=== PATIENT | male | born 1945 | race Caucasian/White ===

== ENCOUNTER → 2020-06-04 | Outpatient (CLI) | payer OTHER ==
[~2020-06-04] MED LIST: BAYER CHEWABLE81 MG PO; CO-ENZYME Q-1010 MG PO; DILTIAZEM 24HR120 M1 PO; DILTIAZEM 24HR180 M1 PO; FINASTERIDE5 MG PO; FISH OIL 1,0001 EAC9 PO; FLONASE 0.05%50 MCG NARES; GARLIC1000 MG PO; MAGNESIUM CITR125 MG PO; MELATONIN5 MG SUBLING; MELOXICAM15 MG PO; MS CONTIN15 MG PO; MULTI VITAMIN1 EACH PO; NEURONTIN 300M300 M2 PO; OMEGA 3-6-9 CO400 MG PO; OSTEO BI-FLEX1 EAC2 PO; PROAIR HFA8.5 GM INH; SYSTANE ULTRA 010 ML OPHTHALMIC; VITAMIN C1000 MG PO; VITAMIN D350 MCG PO; XIIDRA1 EACH OPHTHALMIC; ZINC50 M1 PO; ZYRTEC10 M4 PO
== END ==
LOC: LAB 09:42
PROVIDERS: ATTEND Orthopaedic Surgery
DX: Z01.812 Encounter for preprocedural laboratory examination (principal); Z20.822 Contact with and (suspected) exposure to COVID-19

== ENCOUNTER 2020-06-10 10:28 | Inpatient (IN) | payer OTHER ==
[2020-06-04 09:11] LABS: HEMATOCRIT 43.7 % (42.0-52.0); HEMOGLOBIN 14.7 gm/dL (14.0-18.0); MCH 31.8 pg (26.0-34.0); MCHC 33.6 g/dL (28.0-37.0); MCV 94.6 fL (80.0-100.0); RBC 4.62 mil/uL (4.50-6.00); RDW 13.3 % (10.5-14.5); WBC 4.8 thou/uL (4.0-11.0)
[2020-06-04 09:13] LABS: URINE BILIRUBIN NEGATIVE (Negative); URINE BLOOD NEGATIVE (Negative); URINE CLARITY CLEAR; URINE COLOR YELLOW; URINE GLUCOSE-RANDOM* NEGATIVE (Negative); URINE KETONES NEGATIVE (Negative); URINE LEUKOCYTES-REFLEX NEGATIVE (Negative); URINE NITRITE-REFLEX NEGATIVE (Negative); URINE PROTEIN (DIPSTICK) NEGATIVE (Negative); URINE SPECIFIC GRAVITY 1.025 (1.005-1.035); URINE UROBILINOGEN 0.2 E.U./dl (0.2-1.0)
[2020-06-04 09:19] LABS: ALBUMIN 3.8 g/dL (3.4-5.0); CREATININE 1.2 mg/dL (0.7-1.3); POTASSIUM 4.3 mmol/L (3.5-5.1)
[2020-06-04 09:26] LABS: PROTIME 10.9 Seconds (9.3-11.4)
[~2020-06-10] VITALS: Ht 182.9 cm; Wt 105.2 kg
[2020-06-10] VITALS (7 sets, daily range): BP systolic 113–146; BP diastolic 71–98
--- NOTE | ~2020-06-10 | O ---
[facility] [place] [address] OPERATIVE REPORT Name: SANJAYDEE DEE SHAHBAZ Room #: [facility] [place] M.R.#: [id number] Admission: 06/10/20 Attend Phys: Esteban Joseph MD Discharge: Date of : 43 Report #: [id number] THIS REPORT FOR: cc: ALDO - Megan family physician/PCP ALDO - No family physician/PCP Esteban Joseph MD ~ DATE OF SERVICE: 06/10/2020 PREOPERATIVE DIAGNOSIS: Bilateral knee osteoarthritis. POSTOPERATIVE DIAGNOSIS: Bilateral knee osteoarthritis. PROCEDURE: Bilateral total knee arthroplasty using Navio robotic assistance. SURGEON: Esteban Joseph MD READINESS PARAPROFESSIONAL: Erica Phillip PA-C INDICATIONS FOR READINESS PARAPROFESSIONAL: Throughout the case, extensive retraction and manipulation of the knees were required. This was afforded to me by my medical assistant supervisor. ANESTHESIA: LMA with an adductor canal block. IMPLANTS: For the right knee is Herrera [employer]hew size 7 Journey II BCS cobalt chrome femur, a size 7 tibia, size 10 polyethylene and a size 35 patella. For the left knee is a size 7 Journey II BCS cobalt chrome femur, size 7 tibia, size 9 constrained polyethylene and a size 35 patella. TOURNIQUET TIME: 50 minutes for the right and 59 minutes for the left. ESTIMATED BLOOD LOSS: 50 mL. COMPLICATIONS: None. SPECIMENS: None. CONDITION UPON LEAVING THE OPERATING ROOM: Stable. INDICATIONS FOR PROCEDURE: The patient is a 75-year-old gentleman with bilateral knee osteoarthritis. He had failed conservative measures for this and after discussion with him, he elected for bilateral total knee arthroplasty. DESCRIPTION OF PROCEDURE: Risks, benefits, alternatives, complications were discussed in detail with the patient including but not limited to risk of [facility] [address] [place] [address] OPERATIVE REPORT Name: DEE DEE GRACE SHAHBAZ Room #: [facility] M.R.#: [id number] Admission: 06/10/20 Attend Phys: Esteban Joseph MD Discharge: Date of : 43 Report #: [id number] anesthesia, risk of damage to nerves, arteries, blood vessels, risk for infection, bleeding, continued knee pain, need for reoperation. Informed consent was obtained from the patient. Bilateral knees were appropriately marked in the preoperative holding area. Adductor canal block was placed by anesthesia. He was brought to the operating room and placed in supine position on operating room table. General anesthesia was induced without complication. Tourniquet was placed on bilateral thighs. Bilateral lower extremities were prepped and draped in normal sterile fashion. Timeout was performed properly identifying the patient and procedure as well as the instrumentation and implants. All in the operating room were in agreement. Following dictation applies to bilateral knees. Lower extremity was exsanguinated, tourniquet was inflated. Tourniquet time again was 50 minutes for the right and 59 minutes for the left. Standard midline incision was made with 10 blade through the skin. Dissection was taken down sharply to the fascia and deep flaps were developed medially and laterally. Fresh 10 blade was used to make a medial parapatellar arthrotomy and the knee was inspected. There was moderate medial compartment osteoarthritis with moderate to severe lateral compartment osteoarthritis ____ cartilage loss of the lateral femoral condyle. ACL and PCL were removed sharply. Reference pins were placed in the femur and the tibia. The knee was then digitally mapped using [employer] robotic system. We sized the size 7 femur and a size 7 tibia and a 10 spacer. After acceptance of the intraoperative plan, the distal femoral cut was made with Navio bur. Distal femoral cutting block was pinned in place and chamfer cuts were made. Attention was turned to the tibia. Remainder of the menisci removed with Bovie cautery. Tibial resection guide was pinned in place using the Navio for placement and tibial resection was made. Flexion and extension gaps were checked and found to have good balance in flexion and extension both medially and laterally. Tibia was sized, found to be a size 7. A size 7 tibial trial was placed, pinned and punched. Size 7 femoral trial was placed and the box cut was made. This was then trialed with a size 9 polyethylene. Size 10 polyethylene fit best for the right and size 9 constrained was best for the left. 9 mm of bone was resected from the posterior surface of the patella and a size 35 patellar trial button was placed. Knee was taken through range of motion, found to be stable, found to have good patellar tracking. Trial components were removed. Bony ends were thoroughly irrigated with normal saline. Final size 7 tibia, size 7 Journey II BCS cobalt chrome femur and a size 35 patella were cemented in place using standard cementation techniques. While the cement cured, a periarticular injection consisting of morphine, ropivacaine, epinephrine and Toradol was placed around the knee joint capsule. After the cement cured, tourniquet was deflated. Hemostasis was obtained with Bovie cautery. Final size 10 polyethylene was placed on the right and a size 9 constrained polyethylene was placed in the knee. A gram of vancomycin was placed deep in the joint. Fascia was closed with 0 Vicryl, skin was closed with 2-0 Vicryl, 3-0 Monocryl. Dermabond and a FERNANDO dressing was [address] [address] OPERATIVE REPORT Name: DEE DEE GRACE Room #: [facility].#: [id number] Admission: 06/10/20 Attend Phys: Esteban Joseph MD Discharge: Date of : 43 Report #: [id number] applied. The patient tolerated this procedure well and went to recovery room under care of anesthesia postoperatively. By: 1744 [id number] Esteban Joseph MD /nt
[~2020-06-10 10:28] MED LIST changes: -BAYER CHEWABLE81 MG PO; -DILTIAZEM 24HR120 M1 PO; -DILTIAZEM 24HR180 M1 PO; -MS CONTIN15 MG PO; -NEURONTIN 300M300 M2 PO
--- NOTE | 2020-06-10 20:33 | NUR ---
ASSUMED PT CARE AROUND 1530. PT ALERT X ORIENTEDX 4. ON 2L/O2/NC. IV RT FA. PICCO DRESSING ON B/L LWER EXTREMITIES. TEDS/SCDS ON. FALL PRECAUTION IN PLACE. CALL LIGHT IN REACH. BACK PAIN CONTROLLED BY PAIN MEDS. SHIFT REPORT GIVEN TO AMY VICTORIA.
--- NOTE | 2020-06-10 22:37 | NUR ---
ADMISSION ASSESSMENT COMPLETED. PT IS PLEASANT AND COOPERATIVE. EATING SANDWICH-DENIES ANY N/V.PT RATES PAIN TO BACK AT AROUND 2/10. NO PAIN TO KNEES. SCDS, AND TEDS IN PLACE. PT ALSO HAS FERNANDO DRSG TO BOTH KNEES THAT IS C/D/I. PT ABLE TO MOVE TOES ON BOTH FEET, THERE IS ALSO GOOD CIRCULATION AND SENSATION NOTED.BILPOLAR JESSIKA IN PLACE.PT IVF STARTED, PT ALSO DRINKING ADEQAUTELY. NO U/O YET, HAS URINAL BY THE BEDSIDE. HE IS ON FOR POST OP COMFORT.AFEBRILE. APPEARS COMFORTABLE AT THIS TIME. PRN BREATING TREATMENT REQUESTED.WILL CONTINUE WITH POC TILL EOS.
[2020-06-11 04:24] VITALS: BP 121/76
[2020-06-11 05:40] LABS: HEMATOCRIT 32.8 % (42.0-52.0); MCHC 33.5 g/dL (28.0-37.0); MCV 95.7 fL (80.0-100.0); RBC 3.42 mil/uL (4.50-6.00); RDW 13.1 % (10.5-14.5)
[2020-06-11 07:40] VITALS: BP 116/65
--- NOTE | 2020-06-11 08:15 | NUR ---
ASSUMED PT CARE AROUND 0700. PT ALERT X ORIENTED X4. ON ROOM AIR. PICCO DRESSING/SCDS/TEDS IN PLACE. IV RT FA/ D5NS/100ML/HR. PAIN BACK CONTROLLED BY PAIN MEDS. USING URINALS AT BEDSIDE. FALL PRECAUTION IN PLACE. CALL LIGHT IN REACH. WILL CALL APPROPRIATELY. WILL CONT TO MONITOR.
--- NOTE | 2020-06-11 08:41 | NUR ---
ASSESSMENT: CM REVIEWED CHART AND SPOKE WITH PATIENT. PT IS ALERT AND ORIENTED X4. PT IS S/P BILATERAL TKA. PT REPORTS THAT HE LIVES IN A CONDO WITH HIS AT [facility]. PT REPORTS THAT HE HAS TWO STEPS WITH A HANDRAIL TO ENTER. PT REPORTS HAVING A BASEMENT BUT REPORTS NO NEED TO GO DOWN THERE. PT REPORTS THAT HE HAS A CANE AND WALKER AT HOME. PT REPORTS HAVING A SHOWER BENCH WELL A STOOL RISER. CM DISCUSSED ROLE. PT REPORTS HE HAS OUTPATIENT THERAPY ARRANGED AT [facility] TO BEGIN ON MONDAY. THERAPY IS TO WORK WITH PATIENT TODAY. CM WILL CONTINUE TO FOLLOW TO ASSIST NEEDED.
[2020-06-11 19:00] VITALS: BP 150/86
--- NOTE | 2020-06-12 02:28 | NUR ---
PT C/O PAIN TO HIS GEMA KNEES DURING REPORT,MANAGED WITH MED.DRSGS C/DI.POLAR PACK IN PLACE.PROVIDED PT WITH INCENTIVE SPIROMETER,ENCOURAGEDHIM TO USE IT WHILE AWAKE.URINAL AT BEDSIDE WITH GOOD URINE OUTPUT.CALL LIGHT WITHIN REACH.
[2020-06-12 04:25] VITALS: BP 119/61
[2020-06-12 04:45] LABS: HEMATOCRIT 31.1 % (42.0-52.0); HEMOGLOBIN 10.5 gm/dL (14.0-18.0); MCH 32.1 pg (26.0-34.0); MCHC 33.7 g/dL (28.0-37.0); MCV 95.2 fL (80.0-100.0); RBC 3.27 mil/uL (4.50-6.00); RDW 13.1 % (10.5-14.5); WBC 7.1 thou/uL (4.0-11.0)
[2020-06-12 08:03] VITALS: BP 108/69
[2020-06-12] MEDS ORDERED: MS CONTIN15 MG PO (08:09)
[2020-06-12] MEDS ORDERED: BAYER CHEWABLE81 MG PO (08:10)
[2020-06-12] MEDS ORDERED: NEURONTIN 300M300 M2 PO (08:10)
--- NOTE | 2020-06-12 14:31 | NUR ---
ASSUMED CARE OF PT AT 0700 THIS MORNING. PT IS DAY 2 POST OP WITH BILAT KNEE REPLACEMENTS. PT HAS BEEN UP AND WALKING SHORT DISTANCES THIS MORNING AND HAS MORE PAIN THAN YESTERDAY SINCE NERVE BLOCK HAS WORN OFF. PT IS A/OX4, SKIN INTACT WITH CDI DRESSINGS ON BOTH KNEES. POLAR PACK WRAPS ON BOTH LEGS WITH SANTOSH HOSES. PT SKIN W/D/P AND INTACT WITH NO TENTING. EYES PERRLA, LUNGS CLEAR ALL YIP. CR< 3SEC X4, DISTAL PULSES 2+ X4. CALL LIGHT AND OTHER NEEDS IN REACH. PT HAS MOVED FROM BED TO RECLINER AND RESTING COMFORTABLY. ABD SOFT NONTENDER AND ACTIVE BOWEL SOUNDS. ASSESSMENT OTHERWISE NONREMARKABLE. PT IS LOOKING TO BE DISCHARGED TO REHAB FACILITY PENDING AUTHORIZATION.
--- NOTE | 2020-06-12 15:33 | NUR ---
ON-GOING ASSESSMENT: CM REVIEWED CHART. CM SPOKE WITH PHYSICAL THERAPY AND PER ATTENDINGS NOTE PT IS TO BE EVALUATED FOR 5N AND IF INSURANCE DOES NOT APPROVE 5N THEY WILL RE-EVAL ON MONDAY. CM ENTERED 5N EVAL AND SPOKE WITH LIASON. THEY CAN ACCEPT PENDING INSURANCE AUTH. 5N LIASON STATING SHE WILL START AUTH. AWAITING INPUT FROM INSURANCE AT THIS TIME.
[2020-06-12 16:40] VITALS: BP 125/76
--- NOTE | 2020-06-12 16:40 | NUR ---
PATIENT IS A CANDIDATE FOR ACUTE REHAB/5N. AUTHORIZATION REQUESTED 06/12/20. OT EVAL AND PT NOTE TO BE SENT ON 06/13/20. POSSIBLE RESPONSE BY INSURANCE OVER WEEKEND. WILL CONTINUE TO FOLLOW. NIKITA Metz IS WEEKEND HEADEND TECHNICIAN. SHE CAN BE REACHED AT [phone].
[2020-06-12 23:15] VITALS: BP 139/89
--- NOTE | 2020-06-13 03:24 | NUR ---
PT C/O PAIN ON HIS BLE,MANAGED WITH MED.PT ENCOURAGED TO USE INCENTIVE SPIROMETER WHILE AWAKE.FLEXERIL GIVEN PER PT'S REQUEST.NO BM NOTED SO FAR.PT REF PRN MIRALAX STATED THAT HE WOULD TAKE IT IN THE AM.URINAL AT BEDSIDE.PT ABLE TO MAKE HIS NEEDS KNOWN.
[2020-06-13 05:00] VITALS: BP 136/95
[2020-06-13 05:42] LABS: HEMATOCRIT 27.9 % (42.0-52.0); HEMOGLOBIN 9.5 gm/dL (14.0-18.0); MCH 32.5 pg (26.0-34.0); MCHC 34.1 g/dL (28.0-37.0); MCV 95.3 fL (80.0-100.0); RBC 2.93 mil/uL (4.50-6.00); RDW 12.9 % (10.5-14.5); WBC 7.6 thou/uL (4.0-11.0)
[2020-06-13 07:53] VITALS: BP 134/92
[2020-06-13 15:45] VITALS: BP 135/83
--- NOTE | 2020-06-13 17:54 | NUR ---
Assumed pt care this am, pt is post op day 3. Bilateral polar ice packs in place, IS encouraged. Pain is managed with medications VS stable. Partial relief is noted, pt worked with PT today and stayed on the recliner in the aftrnoon. WBAT maintained, awaiting feedback for possible placement for rehab. at the bedside, POC followed with no signs of distress noted. Still no BM for this shift. Uses the urinal at the bedside.
[2020-06-13 19:54] VITALS: BP 139/80
--- NOTE | 2020-06-14 00:15 | NUR ---
PT WAS GOTTEN UP TO THE BSC WITH ASSIST OF TWO/GB AND WALKER.PT STILL NOT ABLE TO HAVE A BM.PT PUT BACK TO THE BED.GEMA KNEES ELEVATED PER PT'S REQUEST.POLAR PACK/SCD AND SANTOSH HOSE IN PLACE URINAL AT BEDSIDE WITH GOOD URINE OUTPUT.PT ABLE TO MAKE HER NEEDS KNOWN.
[2020-06-14 08:10] VITALS: BP 115/65
--- NOTE | 2020-06-14 10:03 | NUR ---
ASSUMED PT CARE THIS AM. PT IS ALERT & ORIENTED X4. PT IS UP WITH ASSISTANCE X1 AND REQUIRED EXTRA TIME. PT USES URINAL AND BEDSIDE COMMODE. PT HAS R FA SALINE LOCKED. PT C/O OF PAIN AND GIVEN PAIN MEDICATION. PT HAS FERNANDO DRESSING, SCD, SANTOSH HOSES AND POLAR PACK. PT AT THE BEDSIDE. PT ON THE BED, BED ON THE LOWEST POSITION, SIDE RAILS UP, CALL LIGHT WITHIN REACH. WILL CONTINUE TO MONITOR PT. FOLLOW POC.
[2020-06-14 16:45] VITALS: BP 132/78
--- NOTE | 2020-06-15 04:06 | NUR ---
RECEIVED CARE OF THIS PATIENT AT 1900. PATIENT ALERT AMD ORIENTED X4. GEMA LOWER EXT WITH FERNANDO DRESSING, SCD'S, TEDS AND POLAR PACK ON. MOVES LOWER EXT WELL WITH GOOD SENSATION. PASSING FLATUS BUT NO BM YET. C/O MILD PAIN, SCHEDULED PAIN MED GIVEN ONLY. SLEPT MOST OF THE NIGHT.
[2020-06-15 04:20] VITALS: BP 132/78
[2020-06-15 07:50] VITALS: BP 115/76
--- NOTE | 2020-06-15 08:54 | NUR ---
ASSUMED PT CARE THIS AM. PT IS ALERT & ORIENTED X4. PT HAS IV SITE ON R FA. PT HAS FERNANDO DRESSING, SCD, SANTOSH HOSES, POLAR PACK. PT STATED THAT HE HAS BEEN PASSING GAS BUT NO BM OF TODAY. MEDICATION AND DIET TOLERATED WELL. REHAB CALLED AND WAITING FOR COVID TEST RESULT BEFORE TRANSFER. PT ON THE BED, BED ON THE LOWEST POSITION, SIDE RAILS UP, CALL LIGHT WITHIN REACH. WILL CONTINUE TO MONITOR PT. FOLLOW POC.
[2020-06-16] MEDS ORDERED: DILTIAZEM 24HR180 M1 PO (07:58)
[2020-06-16] MEDS ORDERED: DILTIAZEM 24HR120 M1 PO (14:10)
== END 2020-06-15 15:53 | DRG 462 ==
LOC: OR 10:28 → 4S 18:41
PROVIDERS: Physical Medicine & Rehabilitation; ADMIT Orthopaedic Surgery; ATTEND Orthopaedic Surgery
PROC: 0SRD0J9 Replacement of Left Knee Joint with Synthetic Substitute, Cemented, Open Approach (ICD-10-PCS; principal; 2020-06-10)
PROC: 8E0Y0CZ Robotic Assisted Procedure of Lower Extremity, Open Approach (ICD-10-PCS; principal; 2020-06-10)
PROC: 3E0T3BZ Introduction of Anesthetic Agent into Peripheral Nerves and Plexi, Percutaneous Approach (ICD-10-PCS; principal; 2020-06-10)
PROC: 0SRC0J9 Replacement of Right Knee Joint with Synthetic Substitute, Cemented, Open Approach (ICD-10-PCS; principal; 2020-06-10)
DX: M17.0 Bilateral primary osteoarthritis of knee (principal); D62 Acute posthemorrhagic anemia; J45.909 Unspecified asthma, uncomplicated; N40.0 Benign prostatic hyperplasia without lower urinary tract symptoms; I10 Essential (primary) hypertension; Z20.822 Contact with and (suspected) exposure to COVID-19
CPT/HCPCS: 10102; 50010; 50101; 50415; 50915; 50954; 51130; 51225; 51320; 52001; 52282; 53000; 53078; 54118; 56527; 56528; 57095; 57103; 57110; 57127; 57180; 58239; 62110; 62900; 64043; 65060; 70005

== ENCOUNTER 2020-06-15 09:46 | Inpatient (IN) | payer OTHER ==
[~2020-06-15] VITALS: Ht 182.9 cm; Wt 103.4 kg
[~2020-06-15 09:46] MED LIST changes: +BAYER CHEWABLE81 MG PO; +MS CONTIN15 MG PO; +NEURONTIN 300M300 M2 PO
--- NOTE | 2020-06-15 16:00 | NUR ---
NEW ADMISSION FROM . CAME IN WITH BED WITH 2 HOSPTIAL STAFF. ALERT AND ORIENTATED, PLESANT AND COOPERATIVE. PAIN IS STABLE AND CONTROLLED WITH RECENTLY GIVEN HYDROCODONE AT 1530. LUNGS CLEAR. VSS. ABDOMEN DISTENDED, BOWEL SOUNDS HYPOACTIVE AND HAD A SMALL BM TODAY. GAVE PT PRUNE JUICE. PASSING FLATUS. DENIES ANY N/V. APPETITE FAIR. BOTH KNEES COVERED WITH ORIGINAL SURGICAL DRESSING WITH FERNANDO DRESSING WITH SANTOSH HOSE AND POLAR ICE PACK INSITU WITH GOOD PAIN CONTROL. GOOD HISTORIAN AND ABLE TO ANSWER QUESTIONS APPROPRIATELY. R FA SALINE LOCKED. ALL CONSENT SIGNED AND QUESTIONS AND CONCERNS ANWERED. CALL LIGHT WITHIN REACH. REPORT GIVEN TO LAVINIA NEGRO RN.
[2020-06-15 18:24] VITALS: BP 141/89
[2020-06-15 21:16] VITALS: BP 119/69
--- NOTE | 2020-06-16 00:09 | NUR ---
ASSUMED PT CARE AT 1900.PT'S HR AT START OF SHIFT WAS ELEVATED IN THE 120.ON ASSESSMENT,PT WAS NOTED TO BE IRREGULAR.PT WAS REALLY CONCERNED,INSTRUCTOR OF EDUCATION ON DUTY NOTIFIED.ORDER NOTED FOR EKG.PT WAS AFIB PER EKG.INSTRUCTOR OF EDUCATION NOTIFIED.ORDER NOTED FOR DILTIAZEM ONE TIME,ORDER CARRIED OUT.PT'S HR DURING MED ADMINSISTRATION WAS 88.PT DID NOT HAVE ANY SYMPTOM THE WHOLE TIME,PT STATED THAT HE FELT OK.STOOL SOFTNER GIVEN THIS HS.DRSG TO HIS GEMA KNEE DRY AND INTACT.SCD/SANTOSH HOSE AND POLAR PACK IN PLACE.PT RESTING ON HIS BED AT THIS TIME.CALL LIGHT WITHIN REACH.
[2020-06-16 06:09] LABS: HEMATOCRIT 23.9 % (42.0-52.0); HEMOGLOBIN 8.1 gm/dL (14.0-18.0); MCH 32.2 pg (26.0-34.0); MCV 94.7 fL (80.0-100.0); RBC 2.52 mil/uL (4.50-6.00); RDW 12.7 % (10.5-14.5); WBC 5.8 thou/uL (4.0-11.0)
[2020-06-16 06:27] LABS: CALCIUM 8.5 mg/dL (8.5-10.1); CREATININE 1.1 mg/dL (0.7-1.3); POTASSIUM 4.4 mmol/L (3.5-5.1)
--- NOTE | 2020-06-16 06:59 | EKG ---
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[employer]: MEDINA : 1945 Requested By: Dasia Palencia Order Number: [id number] MD: Epifanio Andersen Measurements Intervals [place] Rate: 127 P: WA: QRS: -26 QRSD: 109 T: 47 QT: 326 QTc: 475 Interpretive Statements Atrial fibrillation Borderline left axis deviation Abnormal R-wave progression, late transition No previous ECG available for comparison Electronically Signed On 06-16-2020 6:59:38 CDT by Epifanio Andersen [email or web address] <ELECTRONICALLY SIGNED> By: Epifanio Andersen MD, [facility] 06/16/20 0659 [id number] [id number] Epifanio Andersen MD, FACC /EPI
[2020-06-16 07:40] VITALS: BP 124/69
--- NOTE | 2020-06-16 07:43 | NUR ---
RESTING IN BED VS- 124/69 HEART RATE JUMPING AROUND FROM 95- 126. NO C/O CHEST PAIN, NAUSEA, SOB OR DIZZINESSS. PATIENT C/O SLIGHT HEADACHE. O2 SATS 95-97%. WILL CONTINUE TO OBSERVE.
[2020-06-16 07:46] VITALS: BP 129/84
--- NOTE | 2020-06-16 07:52 | NUR ---
PATIENT'S HR IS ELEVATED, NOTED PER RESPIRATORY THERAPIST. CHAYO TAYLOR, KATJA MCCAULEY, AND DR SHELTON WERE PAGED VIA [employer]. RN HARI Bailey. DISCUSSING CASE WITH Yahaira MCCAULEY AT PRESENT TIME. PT DENIES SOA, C/O MILD GRAY AND EYES BURNING IF HE HAS A FEVER BUR ORAL TEMP IS 98.5. PT NOTED THAT HE SLEPT WELL, AND AWOKE WITH HIS SHIRT SOAKED IN SWEAT. NOTED THIS MORNING THAT SHIRT IS DRY IN ASSESSMENT. Nitish PRESSLEYMirtha IS AT BEDSIDE NOW AND BP IS 129/84, HR 118 AND IRREGULAR. RESTIMG WITH NO COMPLAINTS.
[2020-06-16] MEDS ORDERED: DILTIAZEM 24HR180 M1 PO (07:58)
[2020-06-16 08:01] VITALS: BP 109/67
--- NOTE | 2020-06-16 10:54 | NUR ---
PATIENT STATES PAIN DECREASED TO 3. SCD IN PLACE, POLAR PACKS IN PLACE BILTAERALY, ICE FILLED TO COOLERS THIS AM. BRUISING NOTED TO GROIN BILATERALY. SWLLING TO UPPER EXT, WARM TO TOUCH NOTED. PATIENT SLEEPS OFF AND ON SITTING UPRIGHT ON BED. PATIENT UP TO BSC WITH PT THEN WILL GO FOR ECHO ORDERED BY
--- NOTE | 2020-06-16 12:12 | NUR ---
Nutrition: Pt admitted to rehab unit with DJD, S/P TKR bilateral knees. Poor intake consult. Pt eating 90-100% of meals intake so far on unit. Stable weights recently. Pt having echo today due to recent elevated heart rate and afib. On zinc sulfate, vitamin D, MVI, ferrous sulfate. Low nutrition risk
--- NOTE | 2020-06-16 12:26 | 2DMMODE ---
[facility] [place] [address] 2 D/M-MODE ECHOCARDIOGRAM Name: DEE DEE GRACEN Room #: 516-1 ADM IN M.R.#: [id number] Admission: 06/15/20 Attend Phys: Saad Nick MD Discharge: Date of : 43 Report #: [id number] THIS REPORT FOR: cc: ALDO - Megan family physician/PCP ALDO - Megan family physician/PCP Epifanio Andersen MD [facility] ~ APPROVED REPORT Study performed: 06/16/2020 11:41:32 EXAM: Comprehensive 2D, Doppler, and color-flow Echocardiogram Patient Location: Echo lab Room #: [facility] Status: routine BSA: 2.26 HR: 150 bpm BP: 112/74 mmHg Rhythm: Atrial Fibrillation Other Information Study Quality: Adequate Technically limited study due to patient in wheelchair status post bilateral knee replacement.. Indications Atrial Fibrillation 2D Dimensions IVSd: 12.14 (7-11mm) LVOT Diam: 23.44 (18-24mm) LVDd: 40.11 mm PWd: 12.48 (7-11mm) LVDs: 27.59 (25-40mm) Left Atrium: 43.68 (27-40mm) Aortic Root: 38.38 mm Aortic Valve AoV Peak Martínez.: 1.41 m/s AO Peak Gr.: 7.95 mmHg LVOT Max P.35 mmHg LVOT Max V: 0.77 m/s PAQSUALE Vmax: 2.35 cm2 Tricuspid Valve TR Peak Martínez.: 3.02 m/s TR Peak Gr.: 37.00 mmHg [facility] [address] [address] 2 D/M-MODE ECHOCARDIOGRAM Name: DEE DEE GRACE SHAHBAZ Room #: 516-1 ADM IN M.R.#: [id number] Admission: 06/15/20 Attend Phys: Saad Nick, Discharge: Date of : 43 Report #: [id number] Left Ventricle The left ventricle is normal size. There is normal LV segmental wall motion. Mild concentric left ventricular hypertrophy. Left ventricular systolic function is normal. LVEF is 50-55%. This study is not technically sufficient to allow evaluation of the LV diastolic function due to atrial fibrillation. Right Ventricle The right ventricle is normal size. The right ventricular systolic function is normal. Atria Biatrial enlargement. Aortic Valve The aortic valve is normal in structure. No aortic regurgitation is present. There is no aortic valvular stenosis. Mitral Valve The mitral valve is normal in structure. Trace mitral regurgitation. No evidence of mitral valve stenosis. Tricuspid Valve The tricuspid valve is normal in structure. Trace tricuspid regurgitation. Estimated PAP is 37mmHg plus the right atrial pressure. Pulmonic Valve Pulmonic valve is not well visualized. Great Vessels Aortic root is mildly dilated. Ascending aorta is not well visualized. IVC is not well visualized. Pericardium There is no pericardial effusion. <Conclusion> Study performed in atrial fibrillation with a rapid ventricular rate of 146 bpm normal left ventricular size Mild left ventricular concentric hypertrophy Ejection fraction 55-60% Abnormal right ventricle size/function Mild biatrial enlargement [facility] [address] [place] [address] 2 D/M-MODE ECHOCARDIOGRAM Name: DEE DEE GRACE Room #: 516-1 ADM IN M.R.#: [id number] Admission: 06/15/20 Attend Phys: Saad Nick, Discharge: Date of : 43 Report #: [id number] Color-flow Doppler study was performed of the aortic/mitral/tricuspid/pulmonary valve Normal aortic/mitral valve structure and function Trace tricuspid valve insufficiency PA pressure estimated 37 mmHg No pericardial effusion Normal aortic root size <ELECTRONICALLY SIGNED> By: Epifanio Andersen MD, FACC 06/16/20 1226 25 25 Epifanio Andersen MD, FACC /INF
--- NOTE | 2020-06-16 12:29 | NUR ---
team meeting, reccommendation: heart rate 83-130;s, bp stable. consult cardiology, ekg- afib, echo pending. c/o knee pain. mod assist transfers. therapy to [facility], on hold rt cardiology consult. no bm. Reteam chart review. lives home with , emre, 2 steps to enter, has cane. independent when feeling well. shower bench and stool riser, had outpt therapy in the past.
[2020-06-16] MEDS ORDERED: DILTIAZEM 24HR120 M1 PO (14:10)
[2020-06-16 14:11] VITALS: BP 128/89
--- NOTE | 2020-06-16 16:38 | NUR ---
1415 CARDIZEM 120MG PO GIVEN PER DR'S ORDER. BP- 128/89 P- FLUCTUATING FROM 91-137. PATIENT RATES PAIN 3 AT THAT TIME. AT BEDSIDE. POLAR ICE INTACT BILATERALY. SCD IN PLACE. BED ALARM ON. ORDERS RECIEVED TO DC PATIENT TO CCU PATIENT GOING TO ROOM 211. REPORT CALLED TO FIFI REYES. PATIENT TRANSFERED VIA BED X2 ASSIST.
--- NOTE | 2020-06-16 17:14 | EKG ---
[address] [address] ELECTROCARDIOGRAM REPORT Name: DEE DEE GRACEN Room #: 516-1 DIS IN M.R.#: [id number] Admission: 06/15/20 Attend Phys: Saad Nick MD Discharge: 06/16/20 Date of : 43 Report #: [id number] [facility] Test Date: 2020-06-16 Test Time: 10:20:21 Pat Name: DEE DEE GRACE Department: Room: [facility] Gender: M Carpenter Helper Maintenance: KERRY : 1945 Requested By: Yaneli Joe Order Number: [id number] MD: Jose Luis Peralta Measurements Intervals [place] Rate: 131 P: NE: QRS: -20 QRSD: 109 T: 39 QT: 354 QTc: 523 Interpretive Statements Atrial fibrillation Borderline left axis deviation Abnormal R-wave progression, late transition Prolonged QT interval Compared to ECG 06/15/2020 23:07:07 Premature ventricular complexes are no longer present Electronically Signed On 06-16-2020 17:14:20 CDT by Jose Luis Peralta [email or web address] <ELECTRONICALLY SIGNED> By: Jose Luis Peralta MD, [facility] 06/16/20 1714 1020 1020 Jose Luis Peralta MD, [facility] /EPI
== END 2020-06-16 16:15 | disposition short-term general hospital (02) | DRG 554 ==
PROVIDERS: Nurse Practitioner Family; ADMIT Physical Medicine & Rehabilitation; ATTEND Physical Medicine & Rehabilitation
DX: M17.0 Bilateral primary osteoarthritis of knee (principal); D62 Acute posthemorrhagic anemia; R53.81 Other malaise; J45.909 Unspecified asthma, uncomplicated; N40.0 Benign prostatic hyperplasia without lower urinary tract symptoms; I48.91 Unspecified atrial fibrillation; Z96.653 Presence of artificial knee joint, bilateral; K59.00 Constipation, unspecified; E66.9 Obesity, unspecified; I10 Essential (primary) hypertension; K59.03 Drug induced constipation; T40.2X5A Adverse effect of other opioids, initial encounter; Z79.899 Other long term (current) drug therapy; Z68.30 Body mass index [BMI] 30.0-30.9, adult; Y92.89 Other specified places as the place of occurrence of the external cause
CPT/HCPCS: 10112

== ENCOUNTER 2020-06-16 15:25 | Inpatient (IN) | payer OTHER ==
[~2020-06-16] VITALS: Ht 182.9 cm; Wt 105.9 kg
[~2020-06-16 15:25] MED LIST changes: +DILTIAZEM 24HR120 M1 PO; +DILTIAZEM 24HR180 M1 PO
--- NOTE | 2020-06-16 18:25 | NUR ---
ASSUMED CARE OF PT AT APPROX 1615 FROM 5N D/T AFIB W RVR. ADMISSION COMPLETE. ORDERS IMPLEMENTED. PT ORIENTED TO ROOM AND SETTLED. AT BEDSIDE. WILL CONTINUE TO MONITOR FOR CHANGES AND FOLLOW POC.
[2020-06-16 20:00] VITALS: BP 118/68
[2020-06-16 23:48] VITALS: BP 131/56
[2020-06-17 04:11] VITALS: BP 109/68
--- NOTE | 2020-06-17 04:22 | NUR ---
SLEPT MOST OF SHIFT. DENIES PRESENT COMPLAINTS OF PAIN. TELEMETRY SHOWS AFIB RATE 90-110. WORKING ON GOALS AND PLAN OF CARE FOR NOC. MOVES SELF AROUND IN BED. POLAR PACKS TO BILATERAL KNEES. PROGRESSING SLOWLY TOWARDS REHAB. CONTINUE TO ASHLEY SINCLAIR.
[2020-06-17 05:24] LABS: ABSOLUTE NEUTROPHILS 3.8 thou/uL (1.4-8.2); BASOPHILS 0.6 % (0.0-2.0); EOSINOPHILS 3.8 % (0.0-3.0); HEMATOCRIT 22.5 % (42.0-52.0); HEMOGLOBIN 7.6 gm/dL (14.0-18.0); LYMPHOCYTES 20.5 % (24.0-44.0); MCH 32.1 pg (26.0-34.0); MCHC 33.7 g/dL (28.0-37.0); MCV 95.2 fL (80.0-100.0); MONOCYTES 11.5 % (1.0-8.0); PLATELET COUNT 175 thou/uL (150-400); POLYS 63.6 % (36.0-66.0); RBC 2.36 mil/uL (4.50-6.00); RDW 12.8 % (10.5-14.5); WBC 5.9 thou/uL (4.0-11.0)
[2020-06-17 05:49] LABS: ANION GAP 6 mmol/L (7-16); BUN 15 mg/dL (7-18); CALCIUM 8.6 mg/dL (8.5-10.1); CHLORIDE 104 mmol/L (98-107); CHOLESTEROL 98 mg/dL (<200); CO2 30 mmol/L (21-32); GLUCOSE 154 mg/dL (74-106); HDL CHOLESTEROL 31 mg/dL (>40); LDL CHOLESTEROL 57 mg/dL (<100); SODIUM 140 mmol/L (136-145); TC:HDL 3.2 Ratio (Not establshd); TRIGLYCERIDE 51 mg/dL (<150); VLDL 10 mg/dL (<40)
[2020-06-17 06:12] LABS: POTASSIUM 5.1 mmol/L (3.5-5.1)
[2020-06-17 06:13] LABS: SERUM ASSESSMENT Clear
[2020-06-17 08:05] VITALS: BP 145/89
--- NOTE | 2020-06-17 09:28 | NUR ---
Nutrition: RD received consult stating "not needed". pt evaled 06/[address] on rehab unit. Pt transferred to CCU due to heart rate, afib and low hemoglobin. S/P TKR bilateral knees. PO intake 90-100% of meals per records and recent weights stable. Meds/labs reviewed. Consider pt low nutrition risk.
[2020-06-17 11:05] VITALS: BP 117/69
--- NOTE | 2020-06-17 11:42 | NUR ---
Case opened to follow for dc planning. Pt readmitted to CCU from 5N acute rehab due to AFIB. He was rehabing with plans to return home with his at sd. He lives in a condo with two steps to enter and was indep with gait and adl's prior to his most recent hospital stay. He has a cane and rwalker at home along with a shower bench and stool riser. He was suppose to be starting outpt therapy at [facility] this week. He is being seen by cardiology and rehab medicine/PT and OT will re eval. All parties anticipating pt will dc back to acute rehab once stable. The 5N liason will f/u on the ins auth.
[2020-06-17 14:05] LABS: % SATURATION 14 % (20-39); IRON 21 ug/dL (65-175); TIBC 149 ug/dL (250-450)
--- NOTE | 2020-06-17 14:41 | NUR ---
PATIENT HAS BEEN SEEN BY REHAB LASTING FLOORWORKER AND IS APPROPRIATE FOR ACUTE REHAB STAY. AUTHORIZATION FOR ACUTE REHAB STAY REQUESTED THIS DATE WITH POTENTIAL ADMISSION TO 5N REHAB ON 06/18/20. WILL AWAIT INSURANCE RESPONSE.
[2020-06-17 15:15] VITALS: BP 119/66
--- NOTE | 2020-06-17 16:20 | NUR ---
ASSUMED CARE OF PT AT SHIFT CHANGE. ASSESSMENTS CHARTED. MEDS GIVEN PER MAY. PT A&OX4, C/O PAIN TREATED WITH PO MEDS WITH PARTIAL RELIEF. PT STILL IN AFIB, RATES ARE COMING DOWN. PT WORKED WITH CLINIC MANAGER. TREATING CONSTIPATION WITH RESULTS THIS AFTERNOON. WILL CONTINUE TO MONITOR FOR CHANGES AND FOLLOW POC.
[2020-06-17 19:30] VITALS: BP 135/79
--- NOTE | 2020-06-18 03:34 | NUR ---
SLEPT MOST OF SHIFT. WORKING ON GOALS AND PLAN OF CARE FOR NOC. PAIN MEDICATION GIVEN NEEDED FOR PAIN. PROGRSSING SLOWLY TOWARDS REHAB. TELEMETRY SHOWS AFIB CONTROLLED RATE WITH OCCASIONAL SINUS BEATS. MONITOR CLOSELY. CONTINUE TO ASSES CLOSELY.
[2020-06-18 04:15] VITALS: BP 137/78
[2020-06-18 05:21] LABS: ABSOLUTE NEUTROPHILS 5.1 thou/uL (1.4-8.2); BASOPHILS 0.5 % (0.0-2.0); EOSINOPHILS 4.1 % (0.0-3.0); HEMATOCRIT 22.7 % (42.0-52.0); HEMOGLOBIN 7.6 gm/dL (14.0-18.0); LYMPHOCYTES 13.5 % (24.0-44.0); MCH 32.2 pg (26.0-34.0); MCHC 33.7 g/dL (28.0-37.0); MCV 95.7 fL (80.0-100.0); MONOCYTES 9.6 % (1.0-8.0); PLATELET COUNT 205 thou/uL (150-400); POLYS 72.3 % (36.0-66.0); RBC 2.37 mil/uL (4.50-6.00); RDW 12.8 % (10.5-14.5); WBC 7.1 thou/uL (4.0-11.0)
[2020-06-18 05:51] LABS: CALCIUM 8.6 mg/dL (8.5-10.1); MAGNESIUM 2.1 mg/dL (1.8-2.4); POTASSIUM 4.8 mmol/L (3.5-5.1)
[2020-06-18 08:00] VITALS: BP 132/66
[2020-06-18 12:00] VITALS: BP 146/76
[2020-06-18 16:00] VITALS: BP 123/76
[2020-06-18 19:32] VITALS: BP 111/47
--- NOTE | 2020-06-18 19:41 | NUR ---
PT IS AXOX4, PLEASANT. VSS, AFEBRILE, PT IS AFIB ON MONITOR. PT MAIN CONCERN IS PAIN MGMT, AND GETTING READY FOR REHAB. PT AT THE BEDSIDE. GI WOOD STOCK BLANK HANDLER CONSULTED FOR BOWEL PROTOCOL. RX MIRALAX AND SENNA GIVEN. PT HAD LARGE BM. PT AFIB RX CARDIZEM AND MULTAQ. POC IS TO CONTINUE PAIN MGMT, MONITOR VS. FALL PRECAUTIONS IN PLACE. NO CONCERNS AT THIS TIME.
[2020-06-19 04:00] VITALS: BP 133/68
[2020-06-19 05:05] LABS: HEMATOCRIT 22.3 % (42.0-52.0); HEMOGLOBIN 7.4 gm/dL (14.0-18.0); MCHC 33.3 g/dL (28.0-37.0); RBC 2.32 mil/uL (4.50-6.00); RDW 13.2 % (10.5-14.5); WBC 6.1 thou/uL (4.0-11.0)
[2020-06-19 07:23] VITALS: BP 133/71
[2020-06-19 08:45] LABS: ABSOLUTE RETIC COUNT 0.1627 10^6/uL; OBSERVED RETIC COUNT 6.94 % (0.6-2.6)
[2020-06-19 12:07] VITALS: BP 128/66
--- NOTE | 2020-06-19 15:49 | NUR ---
Possible 5N tomorrow pending ins auth and stable hgb. Will follow.
[2020-06-19 15:52] VITALS: BP 135/80
[2020-06-19 20:28] VITALS: BP 109/65
[2020-06-20 04:33] LABS: ABSOLUTE NEUTROPHILS 3.7 thou/uL (1.4-8.2); BASOPHILS 0.5 % (0.0-2.0); EOSINOPHILS 4.6 % (0.0-3.0); HEMATOCRIT 22.7 % (42.0-52.0); HEMOGLOBIN 7.6 gm/dL (14.0-18.0); LYMPHOCYTES 14.1 % (24.0-44.0); MCH 31.8 pg (26.0-34.0); MCHC 33.5 g/dL (28.0-37.0); MCV 95.1 fL (80.0-100.0); MONOCYTES 10.7 % (1.0-8.0); PLATELET COUNT 236 thou/uL (150-400); POLYS 70.1 % (36.0-66.0); RBC 2.38 mil/uL (4.50-6.00); RDW 13.3 % (10.5-14.5); WBC 5.2 thou/uL (4.0-11.0)
[2020-06-20 05:49] VITALS: BP 118/63
[2020-06-20 07:19] VITALS: BP 112/60
[2020-06-20] MEDS ORDERED: MULTAQ 400 MG400 MG PO (10:08)
[2020-06-20] MEDS ORDERED: PROTONIX 20 MG20 M1 PO (10:08)
[2020-06-20 11:38] VITALS: BP 132/79
--- NOTE | 2020-06-20 15:02 | NUR ---
PT IS AXOX4, PLEASANT; C/O PAIN IN KNEES AND CHRONIC PAIN IN LOWER BACK. PT HGB 7.6. COVID TEST NEGATIVE. AWAITING INSURANCE AUTH FOR TRANSFER TO FOR REHAB. VSS, AFEBRILE. PT HAS BEEN AFIB AND SR ON MONITOR. DR LOZANO CONSULTED; PT/OT CONSULTED. POC IS TO CONTINUE PAIN MGMT, PT/OT, MONITOR HR WITH NEW MEDS. FALL PRECAUTIONS IN PLACE. NO CONCERNS AT THIS TIME.
[2020-06-20 15:14] VITALS: BP 120/73
[2020-06-20 20:03] VITALS: BP 110/60
[2020-06-21 05:11] LABS: HEMATOCRIT 25.1 % (42.0-52.0); HEMOGLOBIN 8.4 gm/dL (14.0-18.0); MCH 31.9 pg (26.0-34.0); MCHC 33.3 g/dL (28.0-37.0); MCV 95.8 fL (80.0-100.0); RBC 2.62 mil/uL (4.50-6.00); RDW 13.6 % (10.5-14.5); WBC 5.5 thou/uL (4.0-11.0)
[2020-06-21 05:44] VITALS: BP 126/63
[2020-06-21 07:00] VITALS: BP 128/65
[2020-06-21 12:10] VITALS: BP 136/70
[2020-06-21 15:30] VITALS: BP 129/70
[2020-06-21 19:30] VITALS: BP 132/73
[2020-06-22 04:00] VITALS: BP 138/82
[2020-06-22 08:00] VITALS: BP 137/76
[2020-06-22 08:14] LABS: HEMATOCRIT 25.8 % (42.0-52.0); HEMOGLOBIN 8.4 gm/dL (14.0-18.0); MCH 31.5 pg (26.0-34.0); MCHC 32.6 g/dL (28.0-37.0); MCV 96.5 fL (80.0-100.0); RBC 2.67 mil/uL (4.50-6.00); WBC 5.1 thou/uL (4.0-11.0)
[2020-06-22 12:00] VITALS: BP 130/69
--- NOTE | 2020-06-22 13:50 | NUR ---
spoke with patient, and rehab liason. patient reports he also called his insurance. He reports insurance customer service stated the review is with their casemgr. Patient hopeful to hear from insurance today.
--- NOTE | 2020-06-22 14:31 | NUR ---
rec auth for 5N. notfied patient, phys and Rn. Plan tranfer to 5N today.
[2020-06-22 16:00] VITALS: BP 126/61
--- NOTE | 2020-06-22 17:28 | NUR ---
ASSESSMENT CHARTED. PT ALERT AND ORIENTED. VSS. PRN APIN MED GIVEN WITH PARTIAL RELIEF. PARTICIPATED IN PT/OT. UP IN THE CHAIR THIS AM. ORDERS GIVEN TO TRANSFER PT TO [address] [place] [address] REHABU ROOM 516. REPORT CALLED IN TO THE NURSE.
[2020-06-22] MEDS ORDERED: MULTAQ 400 MG400 MG PO (17:32)
== END 2020-06-22 17:55 | DRG 812 ==
LOC: 2N 15:25
PROVIDERS: Nurse Practitioner; ADMIT Hospitalist; ATTEND Hospitalist
DX: D62 Acute posthemorrhagic anemia (principal); I48.20 Chronic atrial fibrillation, unspecified; J45.909 Unspecified asthma, uncomplicated; N40.0 Benign prostatic hyperplasia without lower urinary tract symptoms; K59.00 Constipation, unspecified; E66.9 Obesity, unspecified; I10 Essential (primary) hypertension; Z96.653 Presence of artificial knee joint, bilateral; Z20.822 Contact with and (suspected) exposure to COVID-19; Z68.31 Body mass index [BMI] 31.0-31.9, adult; Z79.899 Other long term (current) drug therapy; Z79.82 Long term (current) use of aspirin
CPT/HCPCS: 10081

== ENCOUNTER 2020-06-20 11:42 | Inpatient (IN) | payer OTHER ==
[~2020-06-20] VITALS: Ht 182.9 cm; Wt 106.1 kg
[~2020-06-20 11:42] MED LIST changes: +MULTAQ 400 MG400 MG PO; +PROTONIX 20 MG20 M1 PO
[2020-06-22] MEDS ORDERED: MULTAQ 400 MG400 MG PO (17:32)
[2020-06-22 18:00] VITALS: BP 126/69
--- NOTE | 2020-06-22 20:06 | NUR ---
Admitted from ([id number]); arrived in the [facility] at 1801 via wheelchair, transferred to bed safely. A+Ox4. On room air. Vital signs stable. On MS, not on telemetry; no complains and signs of chest pain, crushing sensation and heaviness. Assisted in ADLs. On heart healthy diet- no nausea, no vomiting and no abdominal pain noted; not on blood sugar monitoring. Falls bundle in place. S/P bilat TKR- dressing C/D/I- no bleeding and drainage noted; polar packs resumed, for SCDs at HS. No complains of pain made during assessment. No IV noted. With redness at buttocks- Z guard to be applied. Contient of bowel and bladder- using urinal and to be assisted to the toilet with 1; walker and gait belt- WBAT. Admission assessment done; drug regimen review and the rest of admission intervention to be done by Night RN. Admission forms with patient- to be signed and returned to chart once done. Night RN to continue admission. To continue monitoring patient.
--- NOTE | 2020-06-23 02:48 | NUR ---
PATIENT APPRECIATES ORDER FOR PRN PAIN MEDS BEING OBTAINED, POLAR PACKS REFILLED WITH ICE AND PATIENT GIVEN INSTRUCTIONS ON HOW TO USE THEM WHEN HE GETS HOME. UP TO TOILET WITH GAIT BELT WALKER AND CONTACT GUARD ASSIST ESPECIALLY TO SIT DOWN ON TOILET FOR MODERATE FORMED STOOL. WSNTED TO KEEP SANTOSH HOSE ON HE UNDERSTANDS ORTHO WOULD LIKE, TOLERATED SCDs ON AT HS. LIDODERM PATCH REMOVED FROM LOWER BACK IT STARTED TO ROLL OFF. APPRECIATES Z-GUARD TO MID BOTTOM AND IS TURNING HIMSELF OFF IT WELL DOING EXERCISES RECOMMENDED BY PHYSICAL THERAPY.
[2020-06-23 05:36] LABS: HEMATOCRIT 25.6 % (42.0-52.0); HEMOGLOBIN 8.5 gm/dL (14.0-18.0); MCH 31.8 pg (26.0-34.0); MCHC 33.2 g/dL (28.0-37.0); MCV 95.6 fL (80.0-100.0); RBC 2.68 mil/uL (4.50-6.00); RDW 14.2 % (10.5-14.5); WBC 5.8 thou/uL (4.0-11.0)
[2020-06-23 05:55] LABS: CALCIUM 8.6 mg/dL (8.5-10.1); POTASSIUM 5.2 mmol/L (3.5-5.1)
[2020-06-23 07:15] VITALS: BP 144/83
--- NOTE | 2020-06-23 10:43 | NUR ---
chart review. he was on acute rehab and had to return to medical rt bp and plus. back up on acute rehab. he lives at home with his , independent when feeling ok, no stairs he has to do in home. does not have to go to basement. has shower bench, cane, walker, stool riser, and grab bars. manage on medication. [facility]. will cont following as needed for dc needs.
--- NOTE | 2020-06-23 12:59 | NUR ---
team meeting, recommendation: ortho will changed dressing tomorrow. pain medication prior to therapy knee rom. dc 23 with outpt [facility] therapy and follow up with MD outpatient.
--- NOTE | 2020-06-23 16:21 | NUR ---
Received awake on bed. Due medications given as prescribed, able to swallow meds w/o difficulty. On room air. Vital signs stable.
--- NOTE | 2020-06-23 16:39 | NUR ---
Received awake on bed. Due medications given as prescribed. On MS, not on telemetry; no complains and signs of chest pain, crushing sensation and heaviness. On room air. Vital signs stable. On heart healthy diet- tolerating well; no nausea, no vomiting and no abdominal pain noted. Continent of bowel and bladder, using urinal and able to go to the toilet- output measured adn recorded accordingly. No IV noted. With redness at buttocks- Z guard applied to area. With bilat knee high SANTOSH hose, polar pack and dressing in place C/D/I- s/p bilat TKR. Falls bundle in place. Using walker and gait belt to ambulate. With at bedside- update given. Complained of pain, due PRN pain meds given as prescribed. Pt requested to have Miralax prescribed on a regular basis- SEALING AND CANCELING MACHINE OPERATOR Anastasia informed re: this- orders obtained; medication given as prescribed. Pt made aware re: change of dressing tomorrow by ortho PA. To continue monitoring patient.
[2020-06-23 19:57] VITALS: BP 138/68
--- NOTE | 2020-06-24 02:27 | NUR ---
BM X 1 THIS SHIFT.REFUSED MIRALAX.UP TO THE BATHROOM WITH WALKER WITH ASSIST. BILATERAL POLAR ICE PACK AND BILATERAL SCD'S ON.POC CONTINUED.
[2020-06-24 07:15] VITALS: BP 126/72
--- NOTE | 2020-06-24 09:37 | NUR ---
aspen spoke with [facility] [phone], they will call natanael directly to set up therapy visit. they requested updated pt notes, fax to [phone].
--- NOTE | 2020-06-24 10:19 | NUR ---
ASSUMED CARE AT 0700. PATIENT IS ALERT AND ORIENTED X4. PATIENT DALE'S, CANCER RESEARCHER ARE EQUAL. LUNGS ARE CLEAR AND DEMINISHED. ABD IS SOFT WITH BSX4. PATIENT VOIDS PER URINAL, SAMANTHA COLORED URINE. PATIENT HAS DRESSINGS TO BILATERAL KNEES. PATIENT HAS POLAR ICE MACHINES TO BOTH KNEES. UP TDO THE BR WITH WALKER AND 1 STAFF. SANTOSH HOSE ON DURING THE DAY AND OFF DURING THE NIGHT. Z-GUARD TO BOTTOM R/T REDNESS. FALL AND SAFETY PROTOCOLS IN PLACE. C/O PAIN IN BOTH KNEES. MEDICATED WITH PRN PAIN MED. CONT TO PROGRESS TOWARDS D/C GOALS WILL CONTINUE TO MONITER.
[2020-06-24] MEDS ORDERED: ELIQUIS5 MG PO (11:08)
[2020-06-24 19:50] VITALS: BP 122/68
[2020-06-25 09:00] VITALS: BP 120/74
[2020-06-25] MEDS ORDERED: MIRALAX17 GM PO (11:50)
[2020-06-25] MEDS ORDERED: PACERONE 200 M200 M1 PO (11:50)
[2020-06-25] MEDS ORDERED: ELIQUIS5 MG PO (11:50)
[2020-06-25] MEDS ORDERED: DILTIAZEM 24HR120 M1 PO ×2 (11:50→12:51)
[2020-06-25] MEDS ORDERED: STIMULANT LAXA1 EACH PO (11:50)
--- NOTE | 2020-06-25 18:00 | NUR ---
CONTACTED ORTHO RAILROAD WORKER SEAN BURDEN EARLIER TODAY, AND ORDERS RECEIVED TO ALLOW DRESSINGS TO REMAIN IN PLACE UNTIL PT'S APPOINTMENT ON MONDAY. PT'S MADE THE APPOINTMENT ALREADY AND REQUESTED THAT A REFERRAL BE SENT TO THE PARAPROFESSIONAL AIDE TEACHER AT [facility] FOR THEM TO CONTINUE TO BE SEEN FOR THE ATRIAL FIBRILLATION BY THAT GROUP THEY ARE CLOSER TO THEIR HOME. PT GIVEN A SUPPOSITORY THIS AFTERNOON, AND HAD GOOD RESULTS. PT MEDICATED SEVERAL TIMES FOR PAIN, AND ATTENDED ALL THERAPIES. DISCUSSED MEDICATION DISCREPANCY WITH PHARMACY R/T DILTIAZEM, AND THIS WAS CLARIFIED PER RAILROAD WORKER AND RE-SENT TO THE OUTPATIENT PHARMACY OF THE PATIENT'S CHOICE. REFERRAL WILL NEED TO BE SENT TO DR. MATT GOVEA TOMORROW FOR CARDIOLOGY FOLLOW UP SOON AFTER DISCHARGE. NOTED THIS IN END OF SHIFT REPORT AND CALLED TO CM WELL FOR FOLLOW UP. DC SUMMARY AND CARDIOLOGY PROG NOTES AND IMAGING TO BE SENT TO NEW PARAPROFESSIONAL AIDE TEACHER GROUP WITH REFERRAL PER PT REQUEST.
[2020-06-25 19:55] VITALS: BP 132/78
--- NOTE | 2020-06-26 03:23 | NUR ---
PATIENT IS LOOKING FORWARD TO GOING HOME TODAY WITH BOTH POLAR PACKS. HE APPRECIATED POLAR PACKS IN THE EVENING BUT WANTED THEM OFF AT HS SO THAT HE CAN PUT PILLOWS LATERALLY TO KEEP FEET POINTING STRAIGHT FORWARD. AWARE OF NEED TO SEE DR YAN ON MONDAY FOR FERNANDO DRESSING AND STAPLE REMOVAL, ALSO IN NEED OF REFERRAL TO SEE DR MATT MARSHALL ABOUT HIS EPISODE OF AFIB/RVR HE HAD HERE DURING HIS STAY. UP TO TOILET FOR LARGE BM IN THE EVENING WITH GAIT BELT, WALKER, AND STANDBY ASSIST. APPRECIATES HYDROCODONE FOR BREAKTHROUGH PAIN FROM MS CONTIN BID, WENT MUCH LONGER THAN 4 HOURS BETWEEN HYDROCODONE DOSES. USING URINAL
[2020-06-26 07:15] VITALS: BP 134/74
[2020-06-26 09:45] VITALS: BP 134/74
--- NOTE | 2020-06-26 10:40 | NUR ---
ASSUMED CARE AT 0700. SLEPT WELL. ALERT AND ORIENTATED X 3. PAIN IS STABLE AND MANAGEABLE WITH LACHELLE MORHINE AND PRN HYDROCODONE. LUNGS CLEAR AND ON RA. ABDOMEN SOFT AND HAD A BM TODAY. SURGICAL DRESSING ON BOTH KNEES WITH NO DRAINAGE NOTED. MILD SWELLING WITH NO SIGN OF WARMTH OR INFLAMMATION. PLAN FOR [facility] TO REMOVE DRESSING AND NILES ON MONDAY DURING HIS FOLLOW UP. PEDAL PULSES 2+. H&P AND DC SUMMARIES TO BE SENT TO PT'S PCP AND TO A NEW REFERRAL TO CARDIOLOGY. DC INSTRUCTIONS EDUCATION GIVEN TO PT.
--- NOTE | 2020-06-26 11:38 | NUR ---
cm faxed dc orders and referral to [facility] [phone], office to call natanael and set up appointments. dc home today with outpt therapy.
--- NOTE | 2020-06-29 12:53 | PLAN ---
[facility] [place] [address] REHAB UNIT PLAN OF CARE Name: DEE DEE GRACE SHAHBAZ Room #: 516-1 DIS IN M.R.#: [id number] Admission: 06/22/20 Attend Phys: Saad Nick MD Discharge: 06/26/20 Date of : 43 Report #: [id number] THIS REPORT FOR: cc: ALDO - Megan family physician/PCP FAM - No family physician/PCP Saad Nick MD ~ DOC #: [id number] Saad Nick MD DATE OF SERVICE: 06/24/2020 PROGRESS NOTE AND OVERALL PLAN OF CARE SUBJECTIVE: The patient is seen back today in followup. He is in no distress. Temperature 36.7, pulse 80, respirations 20, blood pressure 126/72. He has the ice pack in place with Andrey wraps and I removed those along with occupational therapy. Discussed the importance of working on bending his knees and increasing knee range of motion. Transfers are min assist with gait standby assistance 15 feet. He has ambulated up to 200 feet. Range of motion of the left knee is 65-75 degrees. Range of motion of the right knee has been up to 75 degrees. In occupational therapy, lower body dressing is standby with upper body dressing, standby. ASSESSMENT: A 75-year-old male with the following problem list: 1. Degenerative joint disease, bilateral total knee replacements, 06/10/2020, weightbearing as tolerated. 2. Acute blood loss anemia postop. 3. Atrial fibrillation, now in normal sinus rhythm. 4. Seasonal allergies. 5. Benign prostatic hypertrophy. 6. Hypertension. PLAN: Overall plan of care is based on the pre-admit screen and information garnered from therapy assessments. 1. Estimated length of stay will be for him to discharge end of this week on Monday. 2. Medical prognosis is reasonably good. 3. Anticipated interventions includes the interdisciplinary acute inpatient rehabilitation program. 4. Anticipated functional outcomes would be for the patient to become modified independent with transfers, mobility, ADLs and to further improve as far as his knee range of motion. 5. Discharge destination would be back to the home setting where he lives with his . 6. Expected therapy by discipline includes PT and OT one and 1-1/2 hours per day each five days a week throughout the duration of the acute inpatient stay. [address] [address] REHAB UNIT PLAN OF CARE Name: DEE DEE GRACE Room #: 516-1 [facility] ..#: [id number] Admission: 06/22/20 Attend Phys: Saad Nick MD Discharge: 06/26/20 Date of : 43 Report #: [id number] The patient's prognosis for significant practical improvement within a reasonable period of time appears good. Given the patient's complex medical condition and risk of further medical complications, rehabilitation services could not be safely provided at the lower level of care such as a shelter facility. Saad Nick MD DGS <ELECTRONICALLY SIGNED> By: Saad Nick MD 06/29/20 [id number] Saad Nick MD /nt
== END 2020-06-26 11:45 | disposition home or self-care (01) | DRG 554 ==
PROVIDERS: Nurse Practitioner Family; ADMIT Physical Medicine & Rehabilitation; ATTEND Physical Medicine & Rehabilitation
DX: M17.0 Bilateral primary osteoarthritis of knee (principal); D62 Acute posthemorrhagic anemia; I48.91 Unspecified atrial fibrillation; K59.00 Constipation, unspecified; N40.0 Benign prostatic hyperplasia without lower urinary tract symptoms; E66.9 Obesity, unspecified; I10 Essential (primary) hypertension; J45.909 Unspecified asthma, uncomplicated; Z79.899 Other long term (current) drug therapy; Z68.31 Body mass index [BMI] 31.0-31.9, adult
CPT/HCPCS: 10112